=== PATIENT | male | born 1990 | race Caucasian/White ===

== ENCOUNTER 2017-04-03 11:06 | Emergency (ER) | payer SELFPAY ==
[~2017-04-03] VITALS: Ht 177.8 cm; Wt 75.7 kg
[2017-04-03 12:38] VITALS: BP 120/64
[2017-04-03] MEDS ORDERED: HYDR-971 PO (13:12)
[2017-04-03] MEDS ORDERED: AMOX500C PO (13:12)
--- NOTE | 2017-04-03 13:12 | PHYS DOC ---
Past Medical History Past Medical History: Other Additional Past Medical Histor: scoliosis, back pain Past Surgical History: No Surgical History Additional Information: 1 PACK/DAY Alcohol Use: Occasionally Drug Use: None Adult General Chief Complaint Chief Complaint: DENTAL PROBLEM HPI HPI Patient is a 26 year old male presents the ED complaining of right lower dental pain 1 week. Rates the pain as 8 out of 10. Describes the pain as sharp. States he has pain with chewing but can tolerate liquids. Denies abscess , fever, chest pain, shortness of breath, difficulty opening jaw, headache or vision changes. Patient also requesting treatment for chlamydia. Patient states he was tested positive but was not treated at another facility. States he is having symptoms of dysuria. REFUSING TO BE RETESTED. Requesting treatment at this facility. Review of Systems Review of Systems Constitutional: Denies fever or chills [] Eyes: Denies change in visual acuity, redness, or eye pain [] HENT: Denies nasal congestion or sore throat [] Respiratory: Denies cough or shortness of breath [] Cardiovascular: No additional information not addressed in HPI [] GI: Denies abdominal pain, nausea, vomiting, bloody stools or diarrhea [] : Complains of dysuria. Denies hematuria [] Musculoskeletal: Denies back pain or joint pain [] Integument: Denies rash or skin lesions [] Neurologic: Denies headache, focal weakness or sensory changes [] Endocrine: Denies polyuria or polydipsia [] Current Medications Current Medications Current Medications Medications (Trade) Dose Ordered Sig/Kaylynn Start Time Stop Time Status Last Admin Dose Admin Azithromycin (Zithromax) 1,000 mg 1X ONCE 04/03/17 13:15 04/03/17 13:16 DC 04/03/17 13:23 1,000 MG Ceftriaxone Sodium (Rocephin Im) 250 mg 1X ONCE 04/03/17 13:15 04/03/17 13:16 DC 04/03/17 13:23 250 MG Allergies Allergies Allergies Coded Allergies Type Severity Reaction Last Updated Verified No Known Drug Allergies 03/11/14 No Physical Exam Physical Exam Constitutional: Well developed, well nourished, no acute distress, non-toxic appearance. [] HENT: Normocephalic, atraumatic, bilateral external ears normal, oropharynx moist, MILD RIGHT LOWER MOLAR DENTAL CARIES. NO ABSCESS OR FLUCTUANCE. no oral exudates, nose normal. [] Eyes: PERRLA, EOMI, conjunctiva normal, no discharge. [] Neck: Normal range of motion, no tenderness, supple, no stridor. [] Cardiovascular:Heart rate regular rhythm, no murmur [] Lungs & Thorax: Bilateral breath sounds clear to auscultation [] Abdomen: Bowel sounds normal, soft, no tenderness, no masses, no pulsatile masses. [] REFUSED EXAM. Skin: Warm, dry, no erythema, no rash. [] Back: No tenderness, no CVA tenderness. [] Extremities: No tenderness, no cyanosis, no clubbing, ROM intact, no edema. [] Neurologic: Alert and oriented X 3, normal motor function, normal sensory function, no focal deficits noted. [] Psychologic: Affect normal, judgement normal, mood normal. [] Current Patient Data Vital Signs Vital Signs Date Time Temp Pulse Resp B/P (MAP) Pulse Ox O2 Delivery O2 Flow Rate FiO2 04/03/17 12:38 98.5 74 18 97 Room Air 98.5 EKG EKG [] Radiology/Procedures Radiology/Procedures [] Course & Med Decision Making Course & Med Decision Making Pertinent Labs and Imaging studies reviewed. (See chart for details) []Will treat for dental infection prophylaxis with amoxicillin and analgesics. Provided contact information and education for follow-up and dental clinic handout. Patient treated with Rocephin and azithromycin in ED. Discussed safe sex practice. Discussed making partners aware. Discussed follow-up STD testing. Patient understands and agrees with plan. Dragon Disclaimer Dragon Disclaimer This electronic medical record was generated, in whole or in part, using a voice recognition dictation system. Departure Departure Impression: Primary Impression: Dental caries Additional Impression: Exposure to STD Disposition: HOME, SELF-CARE Condition: STABLE Referrals: NON,STAFF (PCP) CRUZ SANTIAGO MD Patient Instructions: Dental Caries, Sexually Transmitted Disease Scripts Hydrocodone/Apap 5-325 (NORCO 5-325 TABLET) 1 Each Tablet 1 TAB PO BID, #8 TAB Prov: LINDA GORDON 04/03/17 Amoxicillin (AMOXICILLIN) 500 Mg Capsule 1 CAP PO TID, #30 CAP Prov: LINDA GORDON 04/03/17 Problem Qualifiers LINDA GORDON Apr 03, 2017 13:12
[2017-04-03] MEDS ORDERED: cefTRIAXone IM 250 MG VIAL IM ONE (13:15)
[2017-04-03] MEDS ORDERED: AZITHROMYCIN 250 MG TABLET. PO ONE (13:15)
== END 2017-04-03 13:50 | disposition home or self-care (01) ==
LOC: ER 11:06
DX: K02.9 Dental caries, unspecified (principal); M41.9 Scoliosis, unspecified; F17.200 Nicotine dependence, unspecified, uncomplicated; Z20.2 Contact with and (suspected) exposure to infections with a predominantly sexual mode of transmission
CPT/HCPCS: 96372; 99283; J0696; Q0144

== ENCOUNTER 2017-08-10 13:55 | Emergency (ER) | payer SELFPAY ==
[2017-08-10] MEDS: DEXAMETHASONE SOD PHOS 4 MG/ML VIAL IM ×2 (14:30)
[2017-08-10] MEDS: methylPREDNISolone ACETATE 80 MG/ML VIAL. IM ×2 (14:31)
[2017-08-10] MEDS: diphenhydrAMINE HCL 25 MG CAPSULE PO ×2 (14:31)
== END 2017-08-10 14:50 | disposition home or self-care (01) ==
LOC: ER 13:55
DX: L25.9 Unspecified contact dermatitis, unspecified cause (principal); M41.9 Scoliosis, unspecified
CPT/HCPCS: 96372; 99284; J1040; J1100; Q0163